=== PATIENT | female | born 1955 | race Caucasian/White ===

== ENCOUNTER 2016-08-31 09:46 | Outpatient (CLI) | payer BC ==
[2016-08-31 11:01] LABS: #Basophils 0.1 thou/uL (0.0-0.2); #Eosinphils 0.1 thou/uL (0.0-0.7); #Monocytes 0.7 thou/uL (0.11-0.59); %Basophils 1.1 % (0.0-1.0); %Eosinophils 1.3 % (0.0-10.0); %Lymphocytes 29.2 % (21.0-51.0); %Neutrophils 58.4 % (42.0-75.0); Hemoglobin 14.4 g/dL (12.0-16.0); Mean Corpuscular HGB CONC 33.5 g/dL (32.0-36.0); Mean Corpuscular Hemoglobin 31.8 pg (27.0-31.0); Mean Corpuscular Volume 94.9 fl (81.0-99.0); Mean Platelet Volume 6.9 fL (7.4-10.4); Platelet Count 277 thou/uL (130-400); RBC Distribution Width 11.5 % (11.5-14.5); Red Blood Cell (RBC) Count 4.54 mill/uL (4.20-5.40); White Blood Cell (WBC) Count 6.8 thou/uL (4.8-10.8)
[2016-08-31 11:23] LABS: ALT (SGPT) 15 U/L (0-55); AST (SGOT) 22 U/L (5-34); Albumin 4.2 g/dL (3.5-5.0); Alkaline Phosphatase 88 U/L (40-150); Anion Gap 14 mmol/L (10-20); BUN (Urea Nitrogen) 12 mg/dL (9.8-20.1); Bilirubin, Total 0.3 mg/dL (0.2-1.2); Calc. Creatinine Clearance 0 mL/min (70-130); Calcium 8.8 mg/dL (7.8-10.44); Carbon Dioxide 25 mmol/L (22-29); Cardiac Risk 2.7 (Less than 4.5); Chloride 106 mmol/L (98-107); Cholesterol 181 mg/dL (< 200 Desired); Estimated GFR-MDRD 68; Globulin 2.1 g/dL (2.4-3.5); Glucose 83 mg/dL (70-105); HDL Cholesterol 66 mg/dL (>60 Neg Risk); LDL Cholesterol, Calculated 108 mg/dL; Potassium 4.6 mmol/L (3.5-5.1); Protein, Total 6.3 g/dL (6.0-8.3); Sodium 140 mmol/L (136-145); Triglycerides 37 mg/dL (Less than 150)
== END 2016-08-31 09:47 | disposition home or self-care (01) ==
LOC: HPCALD 09:46
PROVIDERS: ATTEND Family Medicine
DX: Z13.6 Encounter for screening for cardiovascular disorders (principal); R53.83 Other fatigue
CPT/HCPCS: 36415; 80053; 80061; 84443; 85025

== ENCOUNTER 2016-11-25 13:30 | Outpatient (CLI) | payer BC | END 2016-11-25 13:31 | disposition home or self-care (01) | LOC: HPCALD 13:30 | PROVIDERS: ATTEND Family Medicine | DX: N39.0 Urinary tract infection, site not specified (principal) | CPT/HCPCS: 87077; 87086; 87186 ==

== ENCOUNTER 2017-09-03 13:49 | Emergency (ER) | payer BC ==
[2017-09-03] MEDS ORDERED: Ondansetron HCl/PF 4 MG/2 ML Vial ONE (14:24)
[2017-09-03] MEDS ORDERED: Pantoprazole 40 MG VIAL ONE (14:25)
[2017-09-03] MEDS ORDERED: Mag-Al Plus 1200 MG/1200 MG/120 MG/30 ML UDCUP ONE (14:25)
[2017-09-03] MEDS ORDERED: Lidocaine Viscous Sol 2% 15 ml UD Cup ONE (14:25)
[2017-09-03 14:33] LABS: #Basophils 0.1 thou/uL (0.0-0.2); #Eosinphils 0.1 thou/uL (0.0-0.7); #Lymphocytes 1.6 thou/uL (1.20-3.40); #Monocytes 0.5 thou/uL (0.11-0.59); #Neutrophils 3.8 thou/uL (1.40-6.50); %Basophils 1.8 % (0.0-1.0); %Eosinophils 0.9 % (0.0-10.0); %Lymphocytes 25.8 % (21.0-51.0); %Monocytes 8.6 % (0.0-10.0); %Neutrophils 62.8 % (42.0-75.0); Hemoglobin 13.6 g/dL (12.0-16.0); Mean Corpuscular HGB CONC 32.9 g/dL (32.0-36.0); Mean Corpuscular Hemoglobin 29.2 pg (27.0-31.0); Mean Corpuscular Volume 88.6 fl (81.0-99.0); Mean Platelet Volume 6.2 fL (7.4-10.4); Platelet Count 246 thou/uL (130-400); RBC Distribution Width 11.8 % (11.5-14.5); Red Blood Cell (RBC) Count 4.66 mill/uL (4.20-5.40)
[2017-09-03 14:49] LABS: CKMB 0.6 ng/mL (0-6.6); Troponin I Less than 0.010 ng/mL (< 0.028)
[2017-09-03 15:14] LABS: Bilirubin Negative (Negative); Blood, Urine Trace (Negative); Clarity Clear (Clear); Glucose, Urine (Dipstick) Negative (Negative); Leukocyte Negative (Negative); Nitrite Negative (Negative); Protein, Urine (Dipstick) Negative (Neg-Trace); Urobilinogen 0.2 mg/dL (0.2-1.0)
[2017-09-03 15:17] LABS: Bacteria/HPF Rare-Few HPF (None Seen); RBC/HPF 0-3 HPF (0-3); Squamous Epithelial 0-3 HPF (0-3); WBC/HPF 0-3 HPF (0-3)
--- NOTE | 2017-09-03 20:48 | RAD ---
PORTABLE CHEST: 09/03/17 An AP portable film at 1350 shows a normal sized heart and clear lungs. The lungs are mildly hyperexp anded. No infiltrate or effusion was seen. There is no vascular congestion or edema. The trachea is m idline. IMPRESSION: No acute thoracic findings. POS: HOME
== END 2017-09-03 15:15 | disposition home or self-care (01) ==
LOC: BURERS 13:49
DX: K21.0 Gastro-esophageal reflux disease with esophagitis (principal); F32.9 Major depressive disorder, single episode, unspecified; Z79.899 Other long term (current) drug therapy
CPT/HCPCS: 71045; 81003; 81015; 82553; 83690; 84484; 85025; 93005; 96374; C9113; J2405

== ENCOUNTER 2017-09-08 09:07 | Outpatient (CLI) | payer BC ==
--- NOTE | 2017-09-09 07:29 | ULT ---
RIGHT UPPER QUADRANT ULTRASOUND 09/08/17 Ultrasonography of the right upper quadrant was performed for evaluation of abdominal pain. The liver appears normal in size and shape. Internal echotexture is normal. There were no masses dila elvis ducts. The size was normal. Portal venous flow was towards the liver as expected. The visible por tions of the pancreas appear normal. The gallbladder contains no signs of stones or wall thickening. A fold was seen in the neck. The common bile duct was a normal 4 to 5 mm in caliber. The right kidney appeared normal and was 10.0 cm in length. IMPRESSION: Unremarkable right upper quadrant ultrasound. POS: HOME
== END 2017-09-08 09:08 | disposition home or self-care (01) ==
LOC: BURULT 09:07
PROVIDERS: ATTEND Internal Medicine Gastroenterology
DX: R10.9 Unspecified abdominal pain (principal)
CPT/HCPCS: 76705

== ENCOUNTER 2018-02-15 09:19 | Outpatient (CLI) | payer BC ==
--- NOTE | 2018-02-15 21:35 | RAD ---
LEFT THIRD TOE 02/15/18 No definite fracture or joint abnormality was seen at this time. While there was a little irregularit y in the mid proximal phalanx on one view, it is unremarkable on other views. The joints were unremar kable. IMPRESSION: No definite fracture. POS: HOME
== END 2018-02-15 09:20 | disposition home or self-care (01) ==
LOC: BURRAD 09:19
PROVIDERS: ATTEND Family Medicine
DX: M79.675 Pain in left toe(s) (principal)

== ENCOUNTER 2019-03-31 09:52 | Outpatient (CLI) | payer BC ==
--- NOTE | 2019-03-31 10:11 | RAD ---
EXAM: Chest 2 views: HISTORY: Psoriasis COMPARISON: 09/03/2017 FINDINGS: There is a normal-sized cardiomediastinal silhouette. There is no evidence of consolidation, mass, or pleural effusion. The bones are unremarkable. IMPRESSION: No evidence of acute cardiopulmonary disease
== END 2019-03-31 09:53 | disposition home or self-care (01) ==
LOC: BURRAD 09:52
PROVIDERS: ATTEND Internal Medicine Rheumatology
DX: L40.50 Arthropathic psoriasis, unspecified (principal)
CPT/HCPCS: 71046

== ENCOUNTER 2023-09-22 08:37 | Outpatient (CLI) | payer MEDICARE, BC ==
[2023-09-22] MEDS ORDERED: Iopamidol 370 76% 100 ML VIAL ONE (18:35)
== END 2023-09-22 08:38 | disposition home or self-care (01) ==
LOC: BURCT 08:37
PROVIDERS: ATTEND Family Medicine
DX: R10.13 Epigastric pain (principal)
CPT/HCPCS: 74177; Q9967